=== PATIENT | female | born 1960 | race Asian ===

== ENCOUNTER 2018-08-29 16:52 | Emergency (ER) | payer BC ==
--- NOTE | 2018-08-29 17:23 | EDPHY ---
H & P Time Seen by Provider: 08/29/18 17:10 HPI/ROS: CHIEF COMPLAINT: Right-sided facial numbness and headache HISTORY OF PRESENT ILLNESS: Patient is visiting here from [place] and her symptoms started at 11:30 a.m. [place] time when she was on the plane. She had a headache, started feeling numbness and tingling in the right side of her face, a little bit of pain in the right posterior molar area of her jaw and she was given an analgesic by the airplane flight attendant at around 1:00 p.m. And had an episode of nausea and vomiting. When I see her in the emergency department her headache is only 1 or 2/10, she no longer has facial numbness, her mouth does not hurt, she has no weakness in the face or in any extremity. Denies neck pain or vertigo or trouble with speech or balance. REVIEW OF SYSTEMS: Eye: no change in vision ENT: HPI Cardiac: no chest pain or syncope Pulmonary: no cough or SOB Abdomen: no vomiting, diarrhea, abdominal pain Musculoskeletal: No neck pain Skin: no rash Neuro: HPI Constitutional: no fever : no urinary symptoms A comprehensive 10 point review of systems is otherwise negative aside from elements mentioned in the history of present illness. PAST MEDICAL HISTORY: Asthma, negative for vascular or neurologic Social history: Visiting from [place] for the next 3 days General Appearance: Alert and conversant, cooperative. Eyes: No scleral icterus. Pupils equal reactive extraocular motion intact, visual schumacher intact to confrontation. ENT, Mouth: Normal mucous membranes. Normal tympanic membranes, no trismus, no gum swelling. Respiratory: Normal respiratory effort, breath sounds equal, lungs are clear to auscultation. Cardiovascular: Regular rate and rhythm. Gastrointestinal: Abdomen is soft and non tender. Neurological: Alert, face symmetric, normal motor and sensory in extremities. Normal [id number] bilaterally, no pronator drift. Speech is fluent. She does not have decreased sensation to light touch now on either side of the face. Her forehead wrinkles symmetrically. She can lift each leg off the bed for a count of 5. Skin: Warm and dry, no rashes. Musculoskeletal: No peripheral edema. No neck stiffness. Psychiatric: Not agitated. Emergency Department course/MDM: Neurology telephone consultation. Not a stroke alert as her symptoms are rapidly improving, she is more than 4.5 hr after last known normal, she does not have objective detectable neurologic deficit on my exam. No facial numbness now. 1728: Discussed with Dr. Woody, likely complicated migraine and if MRI without is negative then OK to discharge. 1857: multiple white matter enhancements Latoya on MRI, query Multiple Sclerosis. Discussed with Bong about MRI results, recommends discharge with followup back at home in [place] for evaluation of possible MS. Patient currently just has a very slight headache, does not have any numbness or weakness on the face or extremities. Warned she needs to follow up with specialist when she returns home, informed of neurologist recommendation that she could be safely discharged today. Smoking Status: Never smoked Constitutional: Initial Vital Signs Temperature (C) 36.3 C 08/29/18 16:58 Heart Rate 82 08/29/18 16:58 Respiratory Rate 17 08/29/18 16:58 Blood Pressure 143/90 H 08/29/18 16:58 O2 Sat (%) 96 08/29/18 16:58 O2 Delivery Mode Room Air Allergies/Adverse Reactions: No Known Allergies Allergy (Unverified 08/29/18 16:57) Home Medications: Medication Instructions Recorded Albuterol 08/29/18 Medical Decision Making - Diagnostics EKG Interpretation: 12-lead EKG interpreted by me; official reading is in computer system. My interpretation is sinus rhythm rate 75 otherwise normal. Imaging Results: Imaging Impressions Brain MRI 08/29/18 17:29 Impression: 1. There are numerous bilateral tiny white matter hyperintensities seen at and above the level of the lateral ventricles, with differential considerations including foci of demyelination (MS versus post-viral ADEM), chronic microvascular ischemic gliosis (on the basis of atherosclerosis or migraine- induced vasculitis), or old posttraumatic or postinflammatory changes. Clinical correlation and follow-up are suggested. 2. There is no evidence of an acute or subacute infarction. Findings were discussed with KRYSTA ONEILL MD at 18:57, on 08/29/2018. Imaging: Discussed imaging studies w/ scallop cutter Radiologist Differential Diagnosis: Differential considered including but not limited to Ibarra's palsy, ischemic stroke, partial seizure, demyelinating disease, COPY CHASER infection - Data Points Laboratory Results: Laboratory Results 08/29/18 17:08 08/29/18 17:08 08/29/18 08/29/18 17:08 17:08 WBC 8.31 10^3/uL 10^3/uL (3.80-9.50) RBC 4.60 10^6/uL 10^6/uL (4.18-5.33) Hgb 14.0 g/dL g/dL (12.6-16.3) Hct 41.9 % % (38.0-47.0) MCV 91.1 fL fL (81.5-99.8) MCH 30.4 pg pg (27.9-34.1) MCHC 33.4 g/dL g/dL (32.4-36.7) RDW 12.7 % % (11.5-15.2) Plt Count 213 10^3/uL 10^3/uL (150-400) MPV 9.5 fL fL (8.7-11.7) Neut % (Auto) 81.1 % H % (39.3-74.2) Lymph % (Auto) 15.3 % % (15.0-45.0) Hooker % (Auto) 2.6 % L % (4.5-13.0) Eos % (Auto) 0.6 % % (0.6-7.6) Baso % (Auto) 0.2 % L % (0.3-1.7) Nucleat RBC Rel Count 0.0 % % (0.0-0.2) Absolute Neuts (auto) 6.73 10^3/uL H 10^3/uL (1.70-6.50) Absolute Lymphs (auto) 1.27 10^3/uL 10^3/uL (1.00-3.00) Absolute Monos (auto) 0.22 10^3/uL L 10^3/uL (0.30-0.80) Absolute Eos (auto) 0.05 10^3/uL 10^3/uL (0.03-0.40) Absolute Basos (auto) 0.02 10^3/uL 10^3/uL (0.02-0.10) Absolute Nucleated RBC 0.00 10^3/uL 10^3/uL (0-0.01) Immature Gran % 0.2 % % (0.0-1.1) Immature Gran # 0.02 10^3/uL 10^3/uL (0.00-0.10) Sodium 138 mEq/L mEq/L (135-145) Potassium 4.0 mEq/L mEq/L (3.5-5.2) Chloride 101 mEq/L mEq/L (97-110) Carbon Dioxide 25 mEq/l mEq/l (22-31) Anion Gap 12 mEq/L mEq/L (6-14) BUN 13 mg/dL mg/dL (7-23) Creatinine 0.8 mg/dL mg/dL (0.6-1.0) Estimated GFR > 60 Glucose 110 mg/dL H mg/dL (70-100) Calcium 9.9 mg/dL mg/dL (8.5-10.4) Medications Given: Discontinued Medications Acetaminophen (Tylenol) 650 mg PO EDNOW ONE Stop: 08/29/18 18:43 Last Admin: 08/29/18 18:44 Dose: 650 mg Departure - Departure Disposition: Home, Routine, Self-Care Clinical Impression: Facial paresthesia Acute headache Qualifiers: Headache type: unspecified Intractability: not intractable Qualified Code(s): R51 - Headache Condition: Good Instructions: Acute Headache (ED), Paresthesia (ED) Additional Instructions: MRI shows some abnormalities that one possibility is Multiple Sclerosis. Return right away for weakness or recurrent symptoms; follow-up and bring a copy of your MRI to a neurologist next week when you return to [place]. Referrals: Jesse Woody DO [Medical Doctor] - As per Instructions
[2018-08-29 17:30] LABS: PLATELET COUNT 213 10^3/uL (150-400)
--- NOTE | 2018-08-29 17:49 | CPEKG ---
Test Reason : OPEN Blood Pressure : / mmHG Vent. Rate : 075 BPM Atrial Rate : 074 BPM P-R Int : 149 ms QRS Dur : 088 ms QT Int : 393 ms P-R-T Axes : 073 071 028 degrees QTc Int : 439 ms Sinus rhythm Confirmed by Issa Elam ([id number]) on 08/29/2018 5:49:29 PM Referred By: Issa Elam Confirmed By:Issa Elam
[2018-08-29] MEDS ORDERED: ACETAMINOPHEN 325 MG TAB PO ONE (18:42)
[2018-08-29 19:44] VITALS: BP 136/84
== END 2018-08-29 19:43 | disposition home or self-care (01) ==
DX: R20.2 Paresthesia of skin (principal); R51 Headache
CPT/HCPCS: 70551-PN